=== PATIENT | female | born 1975 | race Caucasian/White ===

== ENCOUNTER → 2020-07-22 | Outpatient (CLI) | payer BC ==
[~2020-07-22] MED LIST: ATORVASTATIN CA10 M1 PO; CYCLOBENZAPRINE10 MG PO; HYDROCHLOROTH12.5 M2 PO; LEVOTHYROXINE0.15 M1 PO; PREDNISONE50 MG PO; SERTRALINE HYDR25 MG PO
== END | disposition home or self-care (01) ==
LOC: COVID19 13:15
PROVIDERS: ATTEND Internal Medicine
DX: Z20.828 Contact with and (suspected) exposure to other viral communicable diseases (principal)